=== PATIENT | female | born 1945 | race Hispanic/Latino ===

== ENCOUNTER 2017-12-05 12:15 | Observation (INO) | payer MEDICARE ==
[2017-12-05 12:17] VITALS: BMI 33.7
[2017-12-05] MEDS ORDERED: Sodium Chloride 0.9% 1,000 ML IV STA (13:08)
--- NOTE | 2017-12-05 13:21 | ED PDOC ---
Upper Extremity Pain/Injury Time Seen by Provider: 12/05/17 12:30 Chief Complaint (Nursing): Upper Extremity Problem/Injury Chief Complaint (Provider): Left Arm Bleeding History Per: Patient History/Exam Limitations: no limitations Onset/Duration Of Symptoms: Other (prior to arrival) Current Symptoms Are (Timing): Still Present Additional Complaint(s): 72 y/o female with a pmhx of ESRD, HTN, and diabetes, who presents to the ED due to left arm bleeding onset prior to arrival. Patient states she went to [facility] on Sunday to have a dialysis vein opened. She states the procedure was performed by Dr. Esparza and it was closed with a suture. She reports presenting for dialysis and says the dialysis nurse was told by the doctor to remove the suture, and she is now complaining of continued bleeding at the suture site. Denies any numbness, weakness, nausea, vomiting, chest pain , abdominal pain, or dizziness. PMD: Provider TBD Past Medical History Reviewed: Historical Data, Nursing Documentation, Vital Signs Vital Signs: Last Vital Signs Temp 98.1 F 12/05/17 12:19 Pulse 77 12/05/17 12:19 Resp 16 12/05/17 12:19 BP 139/67 12/05/17 12:19 Pulse Ox 99 12/05/17 12:19 - Medical History PMH: Anemia, Arthritis, Atrial Fibrillation, CAD, CHF, Diabetes, HTN, Hypercholesterolemia, Chronic Kidney Disease - Surgical History Surgical History: Coronary Stent, (1) - Family History Family History: States: Unknown Family Hx - Home Medications Home Medications: Ambulatory Orders Medication Instructions Recorded Amiodarone [Cordarone] 200 mg PO DAILY 12/05/17 Apixaban [Eliquis] 2.5 mg PO Q12 12/05/17 Folic Acid/Vit B Complex and C 1 tab PO DAILY 12/05/17 [Kathleen-Tapan Tablet] Metoprolol Succinate [Toprol XL] 25 mg PO SUTUTHSA 12/05/17 Sevelamer Carbonate [Renvela] 1,600 mg PO WM 12/05/17 traMADol/Acetaminophen [Ultracet 1 tab PO Q6 PRN 12/05/17 37.5/325 mg] - Allergies Allergies/Adverse Reactions: Allergies Allergy/AdvReac Type Severity Reaction Status Date / Time No Known Allergies Allergy Verified 12/05/17 12:19 Review of Systems ROS Statement: Except As Marked, All Systems Reviewed And Found Negative Cardiovascular: Negative for: Chest Pain Gastrointestinal: Negative for: Nausea, Vomiting, Abdominal Pain, Diarrhea Musculoskeletal: Positive for: Arm Pain (left arm bleed) Neurological: Negative for: Weakness, Numbness, Headache, Dizziness Physical Exam - Reviewed Nursing Documentation Reviewed: Yes Vital Signs Reviewed: Yes - Physical Exam Appears: Positive for: Non-toxic, No Acute Distress Head Exam: Positive for: ATRAUMATIC, NORMAL INSPECTION, NORMOCEPHALIC Eye Exam: Positive for: EOMI, Normal appearance, PERRL Neck: Positive for: Normal Cardiovascular/Chest: Positive for: Chest Non Tender. Negative for: Regular Rate, Rhythm (rate controlled irregularly, irregular rhythm), Edema Respiratory: Positive for: Normal Breath Sounds Back: Positive for: Normal Inspection. Negative for: L CVA Tenderness, R CVA Tenderness Extremity: Positive for: Normal ROM, Other (packing partially removed, blood pumping out of the fistula site on the left antecubital area). Negative for: Tenderness, Pedal Edema Neurologic/Psych: Positive for: Alert, Oriented - Laboratory Results Result Diagrams: 12/05/17 14:28 12/05/17 14:28 Interpretation Of Abn Labs: 5.5 k - ECG ECG: Positive for: Interpreted By Me, Viewed By Me Interpretation Of Abn EKG: afib O2 Sat by Pulse Oximetry: 99 (RA) Pulse Ox Interpretation: Normal - Progress ED Course And Treament: 1700: Spoke with Dr. Johns. Will admit. Dr. Rodriguez wanted Dr. Johns to admit. Surgery at bedside and stitched bleeding fistula and will consult vascular. Medical Decision Making Medical Decision Makin:08 Initial Impression: Left arm bleed Plan: --EKG --CMP --Troponin I --CBC w/ differential --PTT/PT --1LNS --Reevaluation Scribe Attestation: Documented by Alton Castrejon, acting as a scribe for Zachary Shah MD. Provider Scribe Attestation: All medical record entries made by the Scribe were at my direction and personally dictated by me. I have reviewed the chart and agree that the record accurately reflects my personal performance of the history, physical exam, medical decision making, and the department course for this patient. I have also personally directed, reviewed, and agree with the discharge instructions and disposition. Disposition - Clinical Impression Clinical Impression: Chronic renal failure, Hemorrhage of surgically-created arteriovenous fistula - Patient ED Disposition Is Patient to be Admitted: Yes Counseled Patient/Family Regarding: Studies Performed, Diagnosis - Disposition Disposition Time: 16:00 Condition: FAIR - Pt Status Changed To: Hospital Disposition Of: Observation - POA Present On Arrival: Falls Or Trauma (bleeding fistula)
[2017-12-05] MEDS ORDERED: Sodium Chloride 0.9% 1,000 ML IV SCH (14:45)
[2017-12-05 14:47] LABS: INR 1.1 (0.9-1.2); PARTIAL THROMBOPLASTIN TIME 32.2 Seconds (25.6-37.1); PROTHROMBIN TIME 11.9 Seconds (9.8-13.1)
[2017-12-05 14:50] LABS: BASO % 0.6 % (0.0-2.0); EOS % 1.1 % (0.0-4.0); HEMOGLOBIN 11.7 g/dL (12.0-16.0); LYMPH # 0.9 K/uL (1.0-4.3); LYMPH % 26.8 % (20.0-40.0); MEAN CELL VOLUME 100.3 fl (81.0-99.0); MEAN CORPUSCULAR HEMOGLOBIN 34.1 pg (27.0-31.0); MEAN PLATELET VOLUME 7.8 fl (7.2-11.7); MONO # 0.3 K/uL (0.0-0.8); MONO % 9.8 % (0.0-10.0); NEUT # 2.1 K/uL (1.8-7.0); NEUT % 61.7 % (50.0-75.0); RBC 3.43 Mil/uL (3.80-5.20); RED CELL DISTRIBUTION WIDTH 15.5 % (11.5-14.5); WHITE BLOOD COUNT 3.5 K/uL (4.8-10.8)
[2017-12-05 15:04] LABS: TROPONIN I 0.014 ng/mL (0.00-0.120)
[2017-12-05 15:12] LABS: ALB/GLOB RATIO 1.5 (1.0-2.1); ALBUMIN 3.7 g/dL (3.5-5.0); CALCIUM 9.4 mg/dL (8.4-10.2)
[2017-12-05] MEDS ORDERED: Sod Polystyrene Sulf 15 gm/60 ml Susp PO STA (16:57)
[2017-12-05] MEDS ORDERED: Dextrose 50% SYRINGE Inj (50 ml) IVP STA (16:58)
[2017-12-05] MEDS ORDERED: Insulin Regular 100 units/ml IV STA (16:58)
[2017-12-05] MEDS ORDERED: Albuterol 0.083% Inhal Sol (2.5 mg/3 mL) UD ONE (17:13)
[2017-12-05] MEDS ORDERED: Insulin Regular 100 units/ml ONE (17:13)
[2017-12-05] MEDS ORDERED: Dextrose 50% SYRINGE Inj (50 ml) ONE (17:13)
[2017-12-05] MEDS ORDERED: Sod Polystyrene Sulf 15 gm/60 ml Susp ONE (17:14)
[2017-12-05] MEDS: Albuterol 0.083% Inhal Sol (2.5 mg/3 mL) UD INH STA ×2 (17:21→17:32)
[2017-12-05 17:36] VITALS: RESP 20
--- NOTE | 2017-12-05 17:44 | CARD ---
APPROVED REPORT EKG Measurement Heart [id number] <Conclusion> Atrial fibrillation Left axis deviation Right bundle branch block Abnormal ECG
--- NOTE | 2017-12-05 18:12 | CP.PCM.CON ---
History of Present Illness - History of Present Illness History of Present Illness: I was asked to evaluate patient by Dr Shah in the ER. Patient is a 72 year old female with PMH ESRD on HD, HTN, chronic atrial fibrillation, mild aortic stenosis who presents with bleeding form AV fistula. Patient had angioplasty of fisutla this week, and reportedly went to dialysis today. She was found to have significant bleeding which was difficult to control. The patient was sent to ER for further evaluation. She is comfortable at present denies chest pain or palpitaitons. Review of Systems - Constitutional Constitutional: absent: As Per HPI, Anorexia, Chills, Daytime Sleepiness, Excessive Sweating, Fatigue, Fever, Frequent Falls, Headache, Increased Appetite , Lethargy, Malaise, Night Sweats, Snoring, Sleep Apnea, Weight Gain, Weight Loss, Weakness, Other - EENT Eyes: absent: As Per HPI, Blind Spots, Blurred Vision, Change in Vision, Decreased Night Vision, Diplopia, Discharge, Dry Eye, Exophthalmos, Floaters, Irritation, Itchy Eyes, Loss of Peripheral Vision, Pain, Photophobia, Requires Corrective Lenses, Sees Flashes, Spots in Vision, Tunnel Vision, Other Visual Disturbances, Loss of Vision, Other Ears: absent: As Per HPI, Decreased Hearing, Ear Discharge, Ear Pain, Tinnitus, Abnormal Hearing, Disequilibrium, Dizziness, Other Nose/Mouth/Throat: absent: As Per HPI, Epistaxis, Nasal Congestion, Nasal Discharge, Nasal Obstruction, Nasal Trauma, Nose Pain, Post Nasal Drip, Sinus Pain, Sinus Pressure, Bleeding Gums, Change in Voice, Dental Pain, Dry Mouth, Dysphagia, Halitosis, Hoarsness, Lip Swelling, Mouth Lesions, Mouth Pain, Odynophagia, Sore Throat, Throat Swelling, Tongue Swelling, Facial Pain, Neck Pain, Neck Mass, Other - Cardiovascular Cardiovascular: absent: As Per HPI, Acrocyanosis, Chest Pain, Chest Pain at Rest , Chest Pain with Activity, Claudication, Diaphoresis, Dyspnea, Dyspnea on Exertion, Edema, Irregular Heart Rhythm, Pain Radiating to Arm/Neck/Jaw, Leg Edema, Leg Ulcers, Lightheadedness, Orthopnea, Palpitations, Paroxysmal Nocturnal Dyspnea, Pedal Edema, Radiating Pain, Rapid Heart Rate, Slow Heart Rate, Syncope, Other - Respiratory Respiratory: absent: As Per HPI, Cough, Dyspnea, Hemoptysis, Dyspnea on Exertion , Wheezing, Snoring, Stridor, Pain on Inspiration, Chest Congestion, Excessive Mucous Production, Change in Mucous Color, Pain with Coughing, Other - Gastrointestinal Gastrointestinal: absent: As Per HPI, Abdominal Pain, Belching, Bloating, Change in Bowel Habits, Change in Stool Character, Coffee Ground Emesis, Constipation, Cramping, Diarrhea, Dyspepsia, Dysphagia, Early Satiety, Excessive Flatus, Fecal Incontinence, Heartburn, Hematemesis, Hematochezia, Loose Stools, Melena, Nausea, Odynophagia, Temesmus, Vomiting, Other - Musculoskeletal Musculoskeletal: absent: As Per HPI, Abnormal Gait, Arthralgias, Atrophy, Back Pain, Deformity, Joint Swelling, Limited Range of Motion, Loss of Height, Muscle Cramps, Muscle Weakness, Myalgias, Neck Pain, Numbness, Radiating Pain into Limb, Stiffness, Tingling, Other - Integumentary Integumentary: absent: As Per HPI, Acne, Alopecia, Bleeding Lesions, Change in Hair, Change in Nails, Change in Pigmentation, Changing Lesions, Dry Skin, Erythema, Furuncle, Hirsutism, Lesions, New Lesions, Non-Healing Lesions, Photosensitivity, Pruritus, Rash, Skin Pain, Skin Ulcer, Sores, Striae, Swelling , Unusual Bruising, Wounds, Jaundice, Other - Neurological Neurological: absent: As Per HPI, Abnormal Gait, Abnormal Hearing, Abnormal Movements, Abnormal Speech, Behavioral Changes, Burning Sensations, Confusion, Convulsions, Disequilibrium, Dizziness, Numbness, Focal Weakness, Frequent Falls , Headaches, Lack of Coordination, Loss of Vision, Memory Loss, Paresthesias, Radicular Pain, Restless Legs, Sensory Deficit, Syncope, Tingling, Tremor, Vertigo, Weakness, Other Visual Disturbances, Other - Psychiatric Psychiatric: absent: As Per HPI, Abnormal Sleep Pattern, Anhedonia, Anxiety, Auditory Hallucinations, Behavioral Changes, Change in Appetite, Change in Libido, Confusion, Depression, Difficulty Concentrating, Hallucinations, Homicidal Ideation, Hopelessness, Irritability, Memory Loss, Mood Swings, Panic Attacks, Paranoia, Suicidal Ideation, Visual Hallucinations, Tactile Hallucinations, Other - Endocrine Endocrine: absent: As Per HPI, Change in Body Appearance, Change in Libido, Cold Intolorance, Deepening of Voice, Excessive Sweating, Fatigue, Flushing, Heat Intolorance, Increase in Ring/Shoe/Hat Size, Palpitations, Polydipsia, Polyphagia, Polyuria, Other - Hematologic/Lymphatic Hematologic: Easy Bleeding Past Patient History - Past Medical History & Family History Past Medical History?: Yes - Past Social History Smoking Status: Never Smoked - CARDIAC Hx Atrial Fibrillation: Yes Hx Congestive Heart Failure: Yes Hx Hypercholesterolemia: Yes Hx Hypertension: Yes - PULMONARY Hx Respiratory Disorders: No - NEUROLOGICAL Hx Neurological Disorder: No - HEENT Hx HEENT Problems: No - RENAL Hx Chronic Kidney Disease: Yes - ENDOCRINE/METABOLIC Hx Endocrine Disorders: Yes Hx Diabetes Mellitus Type 2: Yes - HEMATOLOGICAL/ONCOLOGICAL Hx Anemia: Yes - INTEGUMENTARY Hx Dermatological Problems: No - MUSCULOSKELETAL/RHEUMATOLOGICAL Hx Arthritis: Yes - GASTROINTESTINAL Hx Gastrointestinal Disorders: No - GENITOURINARY/GYNECOLOGICAL Hx Genitourinary Disorders: Yes 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) - PSYCHIATRIC Hx Psychophysiologic Disorder: No Hx Substance Use: No - SURGICAL HISTORY Hx Coronary Stent: Yes - ANESTHESIA Hx Anesthesia: Yes Hx Anesthesia Reactions: No Hx Malignant Hyperthermia: No Meds Allergies/Adverse Reactions: Allergies Allergy/AdvReac Type Severity Reaction Status Date / Time No Known Allergies Allergy Verified 12/05/17 12:19 - Medications Medications: Current Medications Sodium Chloride (Sodium Chloride 0.9%) 1,000 mls @ 100 mls/hr IV .Q10H YOEL Stop: 12/06/17 14:43 Last Admin: 12/05/17 14:44 Dose: 100 mls/hr Physical Exam - Constitutional Appears: Non-toxic - Head Exam Head Exam: NORMAL INSPECTION - Eye Exam Eye Exam: Normal appearance - ENT Exam ENT Exam: Mucous Membranes Moist - Neck Exam Neck exam: Positive for: Full Rom - Respiratory Exam Respiratory Exam: NORMAL BREATHING PATTERN - Cardiovascular Exam Cardiovascular Exam: Irregular Rhythm, Systolic Murmur - GI/Abdominal Exam GI & Abdominal Exam: Normal Bowel Sounds - Rectal Exam Rectal Exam: Deferred - Extremities Exam Extremities exam: Positive for: pedal edema Additional comments: bruit noted left upper extremity fistula site - Back Exam Back exam: NORMAL INSPECTION - Neurological Exam Neurological exam: Alert, Oriented x3 - Psychiatric Exam Psychiatric exam: Normal Affect - Skin Skin Exam: Normal Color Results - Vital Signs Recent Vital Signs: Last Vital Signs Temp 98.3 F 12/05/17 17:15 Pulse 75 12/05/17 17:15 Resp 20 05/16/18 17:15 BP 133/66 12/05/17 17:15 Pulse Ox 98 12/05/17 17:15 - Labs Result Diagrams: 12/05/17 14:28 12/05/17 14:28 Labs: Laboratory Results - last 24 hr 12/05/17 12/05/17 12/05/17 14:28 14:28 14:28 WBC 3.5 L RBC 3.43 L Hgb 11.7 L Hct 34.4 MCV 100.3 H D MCH 34.1 H MCHC 34.0 RDW 15.5 H Plt Count 109 L D MPV 7.8 Neut % (Auto) 61.7 Lymph % (Auto) 26.8 Cloud % (Auto) 9.8 Eos % (Auto) 1.1 Baso % (Auto) 0.6 Neut # (Auto) 2.1 Lymph # (Auto) 0.9 L Cloud # (Auto) 0.3 Eos # (Auto) 0.0 Baso # (Auto) 0.0 PT 11.9 INR 1.1 APTT 32.2 Sodium 138 Potassium 5.5 H Chloride 98 Carbon Dioxide 26 Anion Gap 20 BUN 82 H Creatinine 7.7 H* Est GFR ( Amer) 6 Est GFR (Non-Af Amer) 5 Random Glucose 86 Calcium 9.4 Total Bilirubin 0.6 AST 24 ALT 31 Alkaline Phosphatase 107 Troponin I 0.0140 Total Protein 6.2 L Albumin 3.7 Globulin 2.5 Albumin/Globulin Ratio 1.5 - EKG Data EKG Interpreted by: Myself Assessment & Plan (1) Hemorrhage of surgically-created arteriovenous fistula Assessment and Plan: will need vascular surgery management. will hold Eliquis. Status: Acute (2) Chronic renal failure Assessment and Plan: will need dialysis. missed today's dose. Status: Acute (3) Atrial fibrillation Status: Acute (4) Hypertension Assessment and Plan: rate controlled. continue amiodarone, metoprolol Status: Acute
--- NOTE | 2017-12-05 20:46 | PCM.PROC ---
Procedures Attestation:: I certify that I have explained the specified Operation(s) or Procedure(s), risks, benefits and reasonable alternatives to the Patient and/or other person responsible. The opportunity was given to ask questions and all questions answered - Laceration upper extremity 3-0 other Site: upper extremity Side (if applicable): left Size (cm): 1 Description: other (AV Fistula puncture site ) Depth: simple, single layer Skin layer closed with: other (nylon) Size: 3-0 Number of sutures: 2 Technique: other (figure 8)
[2017-12-06 00:17] VITALS: TEMP 98.5
[2017-12-06 00:55] LABS: ALB/GLOB RATIO 1.4 (1.0-2.1); ALBUMIN 3.7 g/dL (3.5-5.0); CALCIUM 9.3 mg/dL (8.4-10.2)
[2017-12-06] MEDS ORDERED: Insulin Regular 100 units/ml IV ONE (01:02)
[2017-12-06] MEDS ORDERED: Dextrose 50% SYRINGE Inj (50 ml) IVP ONE (01:02)
[2017-12-06] MEDS ORDERED: Sodium Bicarbonate 7.5% (0.9 MEQ/ML) 50ML INJ IV ONE (01:02)
[2017-12-06] MEDS ORDERED: Insulin Regular 100 units/ml ONE (01:49)
[2017-12-06] MEDS ORDERED: Dextrose 50% SYRINGE Inj (50 ml) ONE (01:49)
[2017-12-06 04:23] VITALS: BP 122/62; PULSE 79; O2SAT 99
== END 2017-12-06 02:00 | disposition short-term general hospital (02) ==
LOC: H.ER 12:15 → H.ERHOLD 16:54
PROVIDERS: ADMIT Internal Medicine; ATTEND Internal Medicine
DX: T82.838A Hemorrhage due to vascular prosthetic devices, implants and grafts, initial encounter (principal); Y83.2 Surgical operation with anastomosis, bypass or graft as the cause of abnormal reaction of the patient, or of later complication, without mention of misadventure at the time of the procedure; Y92.9 Unspecified place or not applicable; N18.6 End stage renal disease; I13.2 Hypertensive heart and chronic kidney disease with heart failure and with stage 5 chronic kidney disease, or end stage renal disease; E11.22 Type 2 diabetes mellitus with diabetic chronic kidney disease; I48.2 Chronic atrial fibrillation; Z99.2 Dependence on renal dialysis; I35.0 Nonrheumatic aortic (valve) stenosis; I25.10 Atherosclerotic heart disease of native coronary artery without angina pectoris; E78.00 Pure hypercholesterolemia, unspecified; I50.9 Heart failure, unspecified; Z85.51 Personal history of malignant neoplasm of bladder; Z79.01 Long term (current) use of anticoagulants; Z95.5 Presence of coronary angioplasty implant and graft; D64.9 Anemia, unspecified
CPT/HCPCS: 12001; 80053; 84484; 85025; 85610; 85730; 93005; 96361; 96374; 96375; 96376; 99284; G0378; J7040